=== PATIENT | male | born 1975 | race Caucasian/White ===

== ENCOUNTER 2017-09-03 09:48 | Emergency (ER) | payer MEDICAID ==
[~2017-09-03] VITALS: Ht 193 cm; Wt 69.9 kg
[2017-09-03] MEDS ORDERED: cefTRIAXone SOD 1,000 MG VL IM ONE (10:30)
[2017-09-03] MEDS ORDERED: methylPREDNISolone SOD SUCC 125 MG/2 ML VL IM ONE (10:30)
[2017-09-03 10:58] VITALS: BP 153/103
== END 2017-09-03 11:05 | disposition home or self-care (01) ==
LOC: ER 09:48
DX: J20.9 Acute bronchitis, unspecified (principal); F17.210 Nicotine dependence, cigarettes, uncomplicated
CPT/HCPCS: 96372; 99284; J0696; J2930